=== PATIENT | male | born 1955 | race Caucasian/White ===

== ENCOUNTER 2018-11-28 08:46 | Emergency (ER) | payer OTHER, MEDICAID ==
[2018-11-28] MEDS: KETOROLAC 30 MG INJ IM (09:57)
== END 2018-11-28 11:09 | disposition home or self-care (01) ==
LOC: E/R 08:46
DX: J06.9 Acute upper respiratory infection, unspecified (principal); I10 Essential (primary) hypertension; Z96.649 Presence of unspecified artificial hip joint
CPT/HCPCS: 96372; 99284-25

== ENCOUNTER 2018-12-09 15:08 | Emergency (ER) | payer OTHER, MEDICAID | END 2018-12-09 18:19 | disposition home or self-care (01) | LOC: FTE 15:08 | DX: J06.9 Acute upper respiratory infection, unspecified (principal); I10 Essential (primary) hypertension; Z96.649 Presence of unspecified artificial hip joint | CPT/HCPCS: 99283 ==

== ENCOUNTER 2018-12-15 15:25 | Emergency (ER) | payer OTHER | END 2018-12-15 17:58 | disposition home or self-care (01) | LOC: E/R 15:25 | DX: M79.602 Pain in left arm (principal); I80.9 Phlebitis and thrombophlebitis of unspecified site; I10 Essential (primary) hypertension; R40.2142 Coma scale, eyes open, spontaneous, at arrival to emergency department; R40.2362 Coma scale, best motor response, obeys commands, at arrival to emergency department; R51 Headache; Z96.649 Presence of unspecified artificial hip joint | CPT/HCPCS: 70450; 93971; 99284-25 ==